=== PATIENT | female | born 1995 | race Caucasian/White ===

== ENCOUNTER → 2022-08-07 | Outpatient (CLI) | payer MEDICAID, SELFPAY | END | disposition home or self-care (01) | PROVIDERS: PCP Family Medicine; Visit Provider Obstetrics & Gynecology | DX: R30.0 Dysuria (principal) | CPT/HCPCS: 87086 ==

== ENCOUNTER → 2022-09-09 | Outpatient (CLI) | payer MEDICAID, SELFPAY ==
--- NOTE | 2022-09-09 09:47 | US_ITS ---
STUDY: ULTRASOUND OF THE FEMALE PELVIS - COMPLETE REASON FOR EXAM: Female, 26 years old. aub LMP: TECHNIQUE: Transabdominal and transvaginal TECHNICAL QUALITY: Adequate. COMPARISON: None. FINDINGS: The uterus is anteverted and is in a midline position. The uterus measures 9.1 x 5.7 x 4.3 cm. Normal uterine cervix. The endometrium measures 8.9 mm in thickness, and is heterogeneous. Small hyperechoic density in the endometrial canal measuring approximately 5.2 x 3 mm.. This may represent a small hematoma. Endometrial polyp not excluded but less likely due to lack of vascularity and this is not typical appearance for submucosal fibroid. There is no demonstrated myometrial mass. I.U.D. - The patient does not have an I.U.D. The right ovary is visualized. The right ovary measures 3.2 x 2.7 x 1.9 cm. Small cyst measuring 1.56 x 1.56 cm. There is no visualized right adnexal mass or complex lesion. There is normal arterial and normal venous vascularity. The left ovary is visualized. The left ovary measures 3.5 x 2.8 x 2 cm. There is no left ovarian cyst or ovarian mass. There is no visualized left adnexal mass or complex lesion. There is normal arterial and normal venous vascularity. There is no fluid in the cul-de-sac. The pre void volume of the bladder was 265 ml. US/Pelvic w/ Transvaginal IMPRESSION: Mildly thickened heterogeneous appearing endometrial canal. Small hyperechoic structure within the canal possibly hematoma Cannot definitively exclude a tiny polyp or submucosal fibroid although less likely. Small right ovarian cyst approximately 1.56 x 1.56 cm Electronically Signed: Yovani Mark MD at 20:59 EST Reading Location ID and State: [facility] / [place] , Service support ,
== END | disposition home or self-care (01) ==
PROVIDERS: PCP Family Medicine; Visit Provider Obstetrics & Gynecology
DX: N93.9 Abnormal uterine and vaginal bleeding, unspecified (principal); R10.2 Pelvic and perineal pain
CPT/HCPCS: 76830; 76856

== ENCOUNTER 2022-11-10 09:07 | Day surgery (SDC) | payer MEDICAID, SELFPAY ==
[2022-11-06 12:52] LABS: Absolute Lymphocyte Count 2.28 X10^3/uL (0.83-4.51); Absolute Neutrophil Count 2.5 X10^3/uL (2.0-7.7); Basophil% 1.8 % (0-1); Eosinophil# 0.19 X10^3/uL; Eosinophils% 3.3 % (0-5); Hematocrit 41.1 % (37-47); Hemoglobin 13.2 g/dL (12.0-15.0); Lymphocyte # 2.28 X10^3/ul (0.83-4.51); Mean Corp Hgb Conc 32.1 g/dL (32-36); Mean Corpuscular Hgb 29.1 pg (27.0-32.0); Mean Corpuscular Volume 90.7 fL (81-99); Mean Platelet Vol. 9.6 fl (6.2-12.0); Monocyte# 0.65 X10^3/uL; Monocyte% 11.4 % (0-10); NRBC Flagged by Analyzer 0 % (0-5); Neutrophil # 2.47 X10^3/uL (2.7-7.7); Neutrophil % 43.3 % (47-70); Platelet Count 268 K/mm3 (150-450); RBC Distribution Width CV 12.9 % (11.6-14.6); RBC Distribution Width SD 42.3 fl (35.1-43.9); Red Blood Count 4.53 M/mm3 (4.2-5.4); White Blood Count 5.7 K/mm3 (4.4-11.0)
[2022-11-10] VITALS (11 sets, daily range): BP systolic 92–116; BP diastolic 58–81; PULSE 47–73; RESP 16; TEMP 36–36.4; O2SAT 98–100; BMI 23.8
[2022-11-10 09:34] LABS: Internal QC Validated? YES +Cl - CLEAR BKGD; Pregnancy, Urine Negative Negative
[2022-11-10] MEDS: Lactated Ringers 1,000 ML 15 ML IV ×2 (09:38→12:54)
--- NOTE | 2022-11-10 10:21 | PCM.HP.BLA ---
History and Physical Date of Admission: 11/10/22 Intake Vital Signs ? 10/01/2308:26 10/01/2308:26 Height 5 ft 3 in 5 ft 3 in Weight: 132 lb 4 oz ? BMI 23.4 ? BP 123/82 H ? Intake Visit Reasons:?10 preop D&C Cable Dispatcher Required: No Is patient in pain?: No Allergies aspirin [ASA] Allergy (Verified 10/01/22 09:25) Rashlatex Allergy (Verified 10/01/22 09:25) Rash Medications duloxetine 30 mg capsule,delayed release (Cymbalta) 30 mg PO DAILY 08/07/22 [History Confirmed 10/01/22] magnesium oxide 500 mg capsule 500 mg PO DAILY 08/07/22 [History Confirmed 10/01/22] multivitamin 1 tab PO DAILY 08/07/22 [History Confirmed 10/01/22] Post menopausal: No Patient : No : No PFSH Medical History? Endometrial mass Tonsillectomy planned Surgical History? History of tubal ligation History of ureterotomy S/P tubal ligation Family History? Grandfather Heart disease Hypertension Diabetes Cancer ?? ? colon and skinFather Hypertension Social History? Smoking Status:? Current every day smoker Electronic Cigarette Use:? with nicotine substance use type:? does not use caffeine:? Yes what type of physical activity do you participate in:? none seatbelt use:? always do you feel safe at home:? Yes additional social history:? -Mehrdad HPI 10 preop D&C Details: YANG DELGADO is a 26 year old who presents for pre-op hysteroscopy dilation and curettage for finding of uterine mass on ultrasound: STUDY: ? ULTRASOUND OF THE FEMALE PELVIS - COMPLETE REASON FOR EXAM: ? Female, 26 years old.? aub ? LMP: TECHNIQUE: ? Transabdominal and transvaginal TECHNICAL QUALITY: ? Adequate. COMPARISON: ? None. FINDINGS: The uterus is anteverted and is in a midline position.? The uterus measures 9.1 x 5.7 x 4.3 cm.? Normal uterine cervix.? The endometrium measures 8.9 mm in thickness, and is heterogeneous.? Small hyperechoic density in the endometrial canal measuring approximately 5.2 x 3 mm.. This may represent a small hematoma. Endometrial polyp not excluded but less likely due to lack of vascularity and this is not typical appearance for submucosal fibroid. There is no demonstrated myometrial mass. ? I.U.D. - The patient does not have an I.U.D. The right ovary is visualized.? The right ovary measures 3.2 x 2.7 x 1.9 cm.? Small cyst measuring 1.56 x 1.56 cm.? There is no visualized right adnexal mass or complex lesion. There is normal arterial and normal venous vascularity. The left ovary is visualized.? The left ovary measures 3.5 x 2.8 x 2 cm. There is no left ovarian cyst or ovarian mass.? There is no visualized left adnexal mass or complex lesion.? There is normal arterial and normal venous vascularity. There is no fluid in the cul-de-sac. The pre void volume of the bladder was 265 ml. US/Pelvic w/ Transvaginal IMPRESSION: Mildly thickened heterogeneous appearing endometrial canal. Small hyperechoic structure within the canal possibly hematoma Cannot definitively exclude a tiny polyp or submucosal fibroid although less likely. Small right ovarian cyst approximately 1.56 x 1.56 cm Patient initially came to see me for pelvic pain. She has had tubal ligation then tubal reanastomosis and thinks that she has endometriosis. She states that she has major ptsd and severe pelvic pain I take 4 500mg motrins at a time. She will not allow removal of her endometriosis, uterus, or filshie clips that are now present in her abdomen but consents to hysteroscopy d&c to remove find on scan above.? History ? ? ? 4 ? Elective abortions ? Hx Para ? ? ? 3 ? Spontaneous abortions ? ? ? 1 Hx # Term Pregnancies ? Ectopic pregnancies ? Hx # Pregnancies ? Multiple births ? # of living children ? Past Pregnancies Del. Date Name GA/Weeks Outcome Route Bth Weight Gen Labor Lgth Anesthesia Del Locatn Provider FOB Unknown Shaidon ? Unknown Traydon ? Unknown Cialynn ? ROS Const ROS Unobtainable: All systems reviewed & are unremarkable except as noted in H Resp Resp: Reports system reviewed and no additional complaints, except as documented; Denies cough GI GI: Reports as per HPI Psych Psych: Reports system reviewed and no additional complaints, except as documented Exam Const General: cooperative, healthy appearing, comfortable and no acute distress Resp Effort & Inspection: normal respiratory effort Skin General: no rashes or lesions noted Psych Appearance: grossly normal Speech and Movement: speech and movement normal Coding Level of Care Code Off vis,est,level 4 Diagnoses Endometrial mass? N94.89 Abnormal uterine bleeding? N93.9 Pelvic pain? R10.2 Endometriosis? N80.9 Depression with anxiety? F41.8 PTSD (post-traumatic stress disorder)? F43.10 Assessment and Plan Assessment and Plan (1) Endometrial mass: ?Status:?Acute (2) Abnormal uterine bleeding: ?Status:?Acute ?Comment: pelvic US (3) Pelvic pain: ?Status:?Acute ?Comment: pelvic US (4) Endometriosis: ?Status:?Acute (5) Depression with anxiety: ?Status:?Acute (6) PTSD (post-traumatic stress disorder): ?Status:?Acute Plan After discussing the patient's diagnosis and treatment plan options, patient wishes to proceed with surgical management.?The plan is to start with the hysteroscope and move to symphion if needed. I have discussed with the patient the risks, benefits, and alternatives of the procedure which include but are not limited to risks of anesthesia, bleeding, infection, possible damage to bowel, bladder, or surrounding vasculature which could lead to additional surgery to evaluate any complications.? Patient agrees to procedure and wishes to proceed.? ACOG/uptodate references given for additional information regarding procedure.?
--- NOTE | 2022-11-10 10:30 | POC_PTH ---
PATIENT: YANG ODONNELL LOC: [facility] – [place] U#:[id number] AGE/SX: 26/F ROOM: RE11/10/[address]: Dr. Jenna Rodriguez DO : 1995 BED: DIS: 11/10/2022 SPEC #: [id number] RECD: 11/10/22 13:17 STATUS: KINGSLEY SEMAJ #: [id number] JOHN: 11/10/22 10:[address]: Jenna Rodriguez DEPT: SURGICAL PATHOLOGY RECD BY: Desiree Deal ENTERED: 11/10/22 13:46 SP TYPE: PROD CONC OTHR DR: Dr. Ileana Montes DO Tissues: Product of conception, NOS Procedures: Surgery Specimen Level IV HEADER OPERATION: Hysteroscopy, dilation and curettage PRE-OP DIAGNOSIS: Endometrial mass, abnormal uterine bleeding, pelvic pain, endometriosis TISSUE SUBMITTED: Products of conception MICROSCOPIC DIAGNOSIS Endometrium, curettage: Proliferative endometrium with focal glandular breakdown. Rare fragments of benign superficial endocervix. Increased endometrial stromal hemorrhage. See comment. AM:lev 11/11/2022 COMMENT There is no evidence of products of conception. Clinical correlation is suggested. MICROSCOPIC DESCRIPTION Slides are reviewed. GROSS DESCRIPTION Received in fixative is one container labeled with the patient's name and designated products of conception. The specimen consists of multiple irregular fragments of pink-red soft tissue that in aggregate measure 3.0 x 3.0 x 1.0 cm. No tissue is identified. The entire specimen is submitted in three cassettes. / SJ:lev 11/10/2022 TC:5 CPT: 38531
[2022-11-10] MEDS: Lidocaine 1% (20 ml mdv) 20 ML Vial (11:20)
--- NOTE | 2022-11-10 11:43 | PCM.OP.BLANK ---
Problems Associated Problem List Diagnoses (1) Pelvic pain: (2) Abnormal uterine bleeding: (3) Endometrial mass: Operative Report Date of Procedure: 11/10/22 preoperative diagnosis: Uterine mass on ultrasound and menorrhagia Postoperative diagnosis: Uterine mass on ultrasound and menorrhagi Surgeon: Dr. Jenna Rodriguez DO EBL: 5cc urine output: 30cc findings: Proliferative appearing endometrium specimens removed: endometrial curettings Details of the procedure: Patient was prepped and draped in a normal sterile fashion under MAC anesthesia. A weighted speculum was placed in the vagina and the anterior lip of the cervix was grasped with a single-tooth tenaculum. A paracervical block was placed with 1% lidocaine. Cervix was progressively dilated to allow passage of a 5 mm hysteroscope. The lining was fully visualized and noted to have an proliferative appearing linin without mass polyp or fibroid present. Uterine sounded to 10 cm. Curettage was performed and specimen was sent to pathology. All instruments were removed from the vagina and excellent hemostasis was noted. Patient was awoken and taken to recovery in stable condition. Multi Select Codes Urinary/Genital Urinary/Genital CPT Codes: 14003 Hysteroscopy,EMC, Polypectomy
--- NOTE | 2022-11-10 11:44 | DCINST_ITS ---
Discharge Instructions Diet Discharge Diet: No restrictions Activity Discharge Activity: Return to Normal Activity, May Shower and May Take a Tub Bath (after 1 week) May resume sexual activity in: 1-2 weeks Weight Bearing Status: Weight bearing as tolerated Lifting Restrictions: none Dressing / Incision Call your doctor if you observe: Fever of 101 or Higher, Using more than 1 pad per hour, Shortness of breath and Uncontrolled pain Follow Up Care Please Follow Up With: Jenna Rodriguez DO When: Call [phone] to schedule appointment. Test Results: Test results from this visit will be discussed in further detail at your follow- up appointment, if applicable. Discharge Plan Admission Primary Reason for Your Visit: dilation and curettage Attending Provider: Jenna Rodriguez Primary Care Provider: Ileana Montes Discharge Orders/Prescriptions Prescriptions: New naproxen 500 mg tablet 500 mg PO BID PRN (Reason: pain) Qty: 30 0RF Continued duloxetine [Cymbalta] 30 mg capsule,delayed release(DR/EC) 30 mg PO PRN PRN (Reason: ANXIETY/ DEPRESSION) multivitamin Tablet 1 tab PO DAILY magnesium oxide 500 mg capsule 500 mg PO DAILY Referrals / Follow Up: Ileana Montes DO [Primary Care Provider] - Disposition Disposition (needs filled in before D/C Order can be placed): Home, Self Care
[2022-11-10] MEDS: HYDROcodone Bitartrate/Apap 5/325 Tablet PO (13:16)
== END 2022-11-10 13:46 | disposition home or self-care (01) ==
LOC: SDC 09:08 → AC 09:09
PROVIDERS: Anesthesiology; PCP Family Medicine; Referring Provider Obstetrics & Gynecology; Visit Provider Obstetrics & Gynecology
PROC: 0UDB8ZZ Extraction of Endometrium, Via Natural or Artificial Opening Endoscopic (ICD-10-PCS; CPT 58558; principal; 2022-11-10 10:20)
DX: N85.01 Benign endometrial hyperplasia (principal); N93.9 Abnormal uterine and vaginal bleeding, unspecified; F17.200 Nicotine dependence, unspecified, uncomplicated; F32.A Depression, unspecified; F41.9 Anxiety disorder, unspecified; F43.10 Post-traumatic stress disorder, unspecified; Z98.51 Tubal ligation status; Z79.82 Long term (current) use of aspirin; Z79.899 Other long term (current) drug therapy
CPT/HCPCS: 58558; 00952; 36415; 81025; 85025; 86850; 86900; 86901; 88305; J7120; J2405

== ENCOUNTER → 2022-11-25 | Outpatient (CLI) | payer MEDICAID, SELFPAY ==
[2022-11-25 10:45] LABS: Hemoglobin A1c 4.9 % (3.8-5.6)
== END | disposition home or self-care (01) ==
LOC: LAB 10:02
PROVIDERS: PCP Family Medicine; Referring Provider Nurse Practitioner Women's Health; Visit Provider Nurse Practitioner Women's Health
DX: Z83.3 Family history of diabetes mellitus (principal)
CPT/HCPCS: 36415; 83036